=== PATIENT | female | born 1960 | race American Indian/Alaskan Native ===

== ENCOUNTER 2021-05-04 08:00 | Outpatient (CLI) | payer OTHER | END 2021-05-04 08:30 | disposition home or self-care (01) | LOC: PPH VACUNA 08:00 | PROVIDERS: ATTEND Emergency Medicine Pediatric Emergency Medicine | DX: Z23 Encounter for immunization (principal) ==

== ENCOUNTER 2021-09-29 22:36 | Emergency (ER) | payer OTHER ==
[~2021-09-29] VITALS: Ht 167.6 cm; Wt 60.8 kg
[2021-09-29] MEDS ORDERED: SYNTHROID200 MCG (23:20)
[2021-09-29] MEDS ORDERED: PANCREAZE (23:21)
[2021-09-29] MEDS ORDERED: NORVASC5 MG (23:24)
[2021-09-30] MEDS ORDERED: INTESTINEX680 M2 PO (04:49)
[2021-09-30] MEDS ORDERED: CIPRO500 MG PO (04:49)
[2021-09-30] MEDS ORDERED: METRONIDAZOLE500 MG PO (04:49)
[2021-09-30] MEDS ORDERED: PEPCID AC20 MG PO (04:49)
[2021-09-30] MEDS ORDERED: DICY20TA PO (04:49)
[2021-09-30] MEDS ORDERED: ULTRAM50 MG PO (04:49)
== END 2021-09-30 05:01 | disposition home or self-care (01) ==
LOC: ER 22:36
DX: K52.9 Noninfective gastroenteritis and colitis, unspecified (principal); R10.13 Epigastric pain; R11.11 Vomiting without nausea; Z03.818 Encounter for observation for suspected exposure to other biological agents ruled out
CPT/HCPCS: 74177; Q9965

== ENCOUNTER 2021-11-19 05:15 | Day surgery (SDC) | payer OTHER ==
[~2021-11-19 05:15] MED LIST: CIPRO500 MG PO; DICY20TA PO; INTESTINEX680 M2 PO; METRONIDAZOLE500 MG PO; NORVASC5 MG; PANCREAZE; PEPCID AC20 MG PO; SYNTHROID200 MCG; ULTRAM50 MG PO
== END 2021-11-19 11:10 | disposition home or self-care (01) ==
LOC: AMB-ENDOS 05:15
PROVIDERS: ATTEND Surgery
DX: K63.5 Polyp of colon (principal); Z88.8 Allergy status to other drugs, medicaments and biological substances; K52.9 Noninfective gastroenteritis and colitis, unspecified; E03.9 Hypothyroidism, unspecified; I10 Essential (primary) hypertension